=== PATIENT | female | born 1995 | race Caucasian/White ===

== ENCOUNTER 2017-04-23 21:16 | Emergency (ER) | payer BC, OTHER ==
[~2017-04-23] VITALS: Ht 157.5 cm; Wt 107.3 kg
[~2017-04-23 21:16] MED LIST: CIPR500T4 PO; DICY20TA10 PO; FLAG500T PO; HYDR-3533 PO; IBUP400T20 PO; Z.0.BCPILL PO; ZOFR4TAB3 SL; [UNRECOGNIZED DRUG - CODE] SC
[2017-04-23 21:23] VITALS: BP 147/92; PULSE 85; RESP 18; TEMP 98; O2SAT 98
[2017-04-23] MEDS ORDERED: diphenhydrAMINE HCL 50 MG/ML VIAL IV PUSH ONE (21:45)
[2017-04-23] MEDS ORDERED: SODIUM CHLORIDE 0.9% FLUSH 10 ML FLUSH IV FLUSH PRN (21:45)
[2017-04-23] MEDS ORDERED: methylPREDNISolone SOD SUCC 125 MG/2 ML VIAL IV PUSH ONE (21:45)
[2017-04-23] MEDS ORDERED: FAMOTIDINE 20 MG/2 ML VIAL IV PUSH ONE (21:45)
--- NOTE | 2017-04-23 21:49 | PD ---
HPI Chief Complaint: Skin Problem Time Seen by Provider: 21:34 Travel History International Travel<30 days: No Contact w/Intl Traveler<30days: No Traveled to known affect area: No History of Present Illness HPI This is a 22-year-old female who presents to the emergency department with a rash that started this morning on her face, making her face feel swollen and hot , spreading to her chest and arms. The rash is not itchy but it's irritating, and she feels warm all over. She denies any fevers or chills, sore throat, shortness of breath or wheezing. She's never had symptoms like this before. She does have a history of multiple sclerosis for which she takes interferon injections. Otherwise she's not taken any new medications and has no new exposures she is aware of. PFSH Past Medical History Diminished Hearing: No Neurologic: Yes (MS) Immunizations Current: No Tetanus Vaccination: < 5 Years Influenza Vaccination: No ?: Not LMP: 04/03/17 : 0 Past Surgical History Eye Surgery: Yes (BILAT CRYOFREEZE) Oral Surgery: Yes (WISDOM TEETH) Tonsillectomy: Yes Social History Alcohol Use: Yes (OCC) Tobacco Use: No Substance Use: No Allergies-Medications (Allergen,Severity, Reaction): Coded Allergies: tramadol (Verified Allergy, Severe, Respiratory Failure, 04/23/17) Reported Meds & Prescriptions Reported Meds & Active Scripts Active Lortab 5 mg/325 mg (Hydrocodone/Acetaminophen 5 mg/325 mg) 1 Tab 1 Tab PO Q4H PRN Dicyclomine 20 mg (Dicyclomine HCl) 20 Mg Tab 20 Mg PO QID Cipro (Ciprofloxacin HCl) 500 Mg Tab 500 Mg PO BID Flagyl (Metronidazole) 500 Mg Tab 500 Mg PO BID Zofran ODT (Ondansetron HCl) 4 Mg Tab 4 Mg SL Q6H PRN FOR NAUSEA/VOMITING Reported Ibuprofen 400 Mg Tab 400 Mg PO Q4H PRN Betaseron (Interferon Beta-1B) 0.3 Mg Inj 0.75 Mg SC EVERY OTHER DAY Control Pills (Miscellaneous Medication) Tab 1 Tab PO DAILY Review of Systems Except as stated in HPI: all other systems reviewed are Neg Physical Exam Narrative GENERAL:Well appearing, no acute distress SKIN: Maculopapular rash confluent over the malar area extending down into the chest and over the bilateral forearms, blanching HEAD: Atraumatic. Normocephalic. EYES: Pupils equal and round. No injection or drainage. ENT: Moist mucous membranes NECK: Trachea midline. CARDIOVASCULAR: Regular rate and rhythm. No murmur appreciated. RESPIRATORY: Clear to auscultation. Breath sounds equal bilaterally. GASTROINTESTINAL: Abdomen soft, non-tender, nondistended. MUSCULOSKELETAL: No obvious deformities. NEUROLOGICAL: Awake and alert. No obvious cranial nerve deficits. Moving all extremities. PSYCHIATRIC: Appropriate mood and affect; insight and judgment normal. Data Data Last Documented VS Vital Signs Date Time Temp Pulse Resp B/P (MAP) Pulse Ox O2 Delivery O2 Flow Rate FiO2 04/23/17 21:23 98.0 85 18 147/92 (110) 98 Orders Orders Methylprednisolone So Succ Inj (Solumedr (04/23/17 21:45) Diphenhydramine Inj (Benadryl Inj) (04/23/17 21:45) Iv Access Insert/Monitor (04/23/17 21:40) Famotidine Inj (Pepcid Inj) (04/23/17 21:45) Sodium Chloride 0.9% Flush (Ns Flush) (04/23/17 21:45) MDM Medical Decision Making Medical Screen Exam Complete: Yes Emergency Medical Condition: Yes Interpretation(s) afebrile, no tachycardia, hypertension Differential Diagnosis Allergic reaction, dermatomyositis, lupus, contact dermatitis, urinary dermatitis Narrative Course This is a 22-year-old female who presents to the emergency department with a rash this been going on for 1 day. She has no new exposures that she knows of and no other systemic involvement aside from her skin. She was given a dose of IV steroids and Benadryl and her rash looks significantly improved on reassessment. I suspect this is allergic reaction. Patient will be discharged home on prednisone and was asked to follow-up with her primary care physician if she is not improved in 2-3 days. Diagnosis Primary Impression: Allergic reaction Qualified Codes: T78.40XA - Allergy, unspecified, initial encounter Patient Instructions: General Instructions Additional Instructions: If you develop swelling of the throat or coughing a lot, wheezing or trouble breathing, throwing up or having diarrhea, feeling dizzy or passing out, or spreading of your rash return to the emergency room immediately as you may be having a life threatening allergic reaction. Complete your course of steroids and take benadryl every 4 hours for the next 48 hours and then as needed for itching or other symptoms. Med/Other Pt SpecificInfo: Prescription(s) given Scripts Prednisone (Prednisone) 20 Mg Tab 40 MG PO DAILY, #10 TAB 0 Refills Take 40 mg (2 tablets) daily for 5 days Prov: Ju Clay MD 04/23/17 Disposition: 01 DISCHARGE HOME Condition: Stable Ju Clay MD Apr 23, 2017 21:49
[2017-04-23] MEDS ORDERED: PRED20 PO (22:30)
[2017-04-23 22:43] VITALS: BP 138/75; PULSE 80; RESP 16; O2SAT 98
== END 2017-04-23 22:49 | disposition home or self-care (01) ==
LOC: PHED 21:16
DX: T78.40XA Allergy, unspecified, initial encounter (principal); G35 Multiple sclerosis; Z79.899 Other long term (current) drug therapy
CPT/HCPCS: 96374; 96375; 99284; J1200; J2930